=== PATIENT | female | born 1930 | race African-American/Black ===

== ENCOUNTER 2016-05-24 16:24 | Inpatient (IN) | payer MEDICARE, OTHER ==
[~2016-05-24] VITALS: Ht 152.4 cm; Wt 41.7 kg
[2016-05-24 17:22] LABS: Basophils # (auto) 0 uL; Eosinophils # (auto) 0.1 uL; Eosinophils % (auto) 0.5 % (0.0-7.0); Hematocrit 36.2 % (36.0-46.0); Lymphocytes # (auto) 0.6 uL; Lymphocytes % (auto) 5.1 % (10.0-50.0); Mean Corpuscular Hemoglobin 29.2 pg (28.0-32.0); Mean Corpuscular Hgb Conc. 33.2 g/dL (32.0-36.0); Mean Corpuscular Volume 87.8 fL (80.0-100.0); Mean Platelet Volume 8.9 fL (7.4-10.4); Monocytes # (auto) 0.5 uL; Neutrophils # (auto) 10.2 uL; Neutrophils % (auto) 90.4 % (37.0-80.0); Platelet Count (auto) 339 10^3/uL (140-450); Red Cell Distribution Width 16.7 % (11.6-16.0); White Blood Cell 11.3 10^3/uL (4.4-10.8)
[2016-05-24 18:01] LABS: Lactic Acid 8.1 mmol/L (0.4-2.0)
[2016-05-24 18:03] LABS: Albumin 2.9 g/dL (3.4-5.0); BUN/Creatinine Ratio 26.3; Calcium 8.9 mg/dL (8.5-10.1); Potassium 4.5 mmol/L (3.5-5.1)
[2016-05-24 18:04] LABS: REFLEX LACTIC ACID YES OR NO YES
[2016-05-24 18:05] LABS: Bilirubin, Total 0.9 mg/dL (0.2-1.0)
[2016-05-24 19:34] LABS: Amylase 23 U/L (25-115)
[2016-05-24] MEDS ORDERED: SODIUM CHLORIDE 0.9% 1,000 ML IV ONE ×2 (19:45→20:45)
[2016-05-24 19:48] LABS: Lactic Acid 8.9 mmol/L (0.4-2.0)
[2016-05-24 19:54] LABS: REFLEX LACTIC ACID YES OR NO NO
[2016-05-24] MEDS ORDERED: cefTRIAXone 1GM/50ML D5W 50 ML IV ONE (20:45)
[2016-05-24 21:17] LABS: Urine Bilirubin Negative (Negative); Urine Blood Negative /uL (Negative); Urine Color Yellow (Yellow); Urine Glucose Normal (Normal); Urine Hyaline Cast FEW /lpf (0 - 2); Urine Ketone TRACE (Negative); Urine Mucus FEW (None Seen); Urine Nitrite Negative (Negative); Urine RBC 2 /hpf (0 - 4); Urine Squamous Epithelial Cell MOD /hpf (<5)
[2016-05-25] VITALS (7 sets, daily range): BP systolic 128–146; BP diastolic 55–86
[2016-05-25] MEDS ORDERED: NITROGLYCERIN 0.4 MG SL TAB SL PRN (01:15)
[2016-05-25] MEDS ORDERED: MORPHINE SULF INJ 2 MG/ML SYRINGE 1ML IV PRN (01:15)
[2016-05-25] MEDS ORDERED: LACTULOSE 20Gm/30ML SOLN PO PRN (01:15)
[2016-05-25] MEDS ORDERED: DEXTROSE (50%) 50ML SYRG IV PRN (01:30)
[2016-05-25] MEDS: SODIUM CHLORIDE 0.9% 1,000 ML IV SCH ×2 (01:37→12:47)
[2016-05-25] MEDS: InsuLIN REG 1unit/0.01ml Soln (100units/ml) SC SCH ×3 (06:00→18:00)
[2016-05-25] MEDS: ACCU-CHEK COMFORT CURVE STRIP VI SCH ×3 (06:10→18:23)
[2016-05-25] MEDS ORDERED: ENOXAPARIN SOD 30 MG/0.3 ML SYRINGE SC SCH (10:00)
[2016-05-25] MEDS ORDERED: PANTOPRAZOLE SODIUM 40 MG/10 ML VIAL IV SCH (10:00)
[2016-05-25 12:51] LABS: Basophils # (auto) 0 uL; Basophils % (auto) 0.4 % (0.0-2.0); DEFINITIVE VIEW TRANSMISSION; Eosinophils # (auto) 0.1 uL; Hematocrit 31.5 % (36.0-46.0); Hemoglobin 10.1 g/dL (12.2-16.2); Lymphocytes # (auto) 0.5 uL; Lymphocytes % (auto) 4.5 % (10.0-50.0); Mean Corpuscular Hemoglobin 25.8 pg (28.0-32.0); Mean Corpuscular Hgb Conc. 31.9 g/dL (32.0-36.0); Mean Corpuscular Volume 80.8 fL (80.0-100.0); Monocytes # (auto) 0.8 uL; Neutrophils # (auto) 9.7 uL; Neutrophils % (auto) 87.1 % (37.0-80.0); Platelet Count (auto) 292 10^3/uL (140-450); Red Cell Distribution Width 16.1 % (11.6-16.0); White Blood Cell 11.1 10^3/uL (4.4-10.8)
[2016-05-25 13:20] LABS: Albumin 2.4 g/dL (3.4-5.0); BUN/Creatinine Ratio 39.5; Bilirubin, Total 0.6 mg/dL (0.2-1.0); Calcium 8.3 mg/dL (8.5-10.1); Magnesium 2.7 mg/dL (1.6-2.6); Potassium 4.3 mmol/L (3.5-5.1); Total Protein 5.6 g/dL (6.4-8.2)
[2016-05-25] MEDS ORDERED: HYDROcodone-ACET 5/325MG TAB PO PRN (16:45)
[2016-05-25] MEDS ORDERED: Boost Glucose Control 8 Ounces PO SCH (18:00)
[2016-05-25] MEDS ORDERED: cefTRIAXone 1GM/50ML D5W 50 ML IV SCH (22:00)
== END 2016-05-25 18:58 | disposition short-term general hospital (02) | DRG 871 ==
LOC: ER 16:59 → TELE 17:00 → TELE-CENTR 05-25 02:50
PROVIDERS: ADMIT Family Medicine; ATTEND Family Medicine
DX: A41.9 Sepsis, unspecified organism (principal); G93.41 Metabolic encephalopathy; C85.90 Non-Hodgkin lymphoma, unspecified, unspecified site; E44.0 Moderate protein-calorie malnutrition; E87.2 Acidosis; N39.0 Urinary tract infection, site not specified; Z68.1 Body mass index [BMI] 19.9 or less, adult; E11.65 Type 2 diabetes mellitus with hyperglycemia; D64.9 Anemia, unspecified; E86.0 Dehydration; I10 Essential (primary) hypertension; R62.7 Adult failure to thrive; R55 Syncope and collapse
CPT/HCPCS: 36415; 70450; 71010; 73501; 74176; 80053; 81001; 82150; 82607; 82962; 83036; 83605; 83690; 83735; 84443; 84484; 85025; 87040; 93970; 96365; C9113; J0696